=== PATIENT | female | born 1940 | race African-American/Black ===

== ENCOUNTER 2016-06-25 13:34 | Emergency (ER) | payer MEDICARE, BC ==
[~2016-06-25] VITALS: Ht 160 cm; Wt 91.0 kg
[~2016-06-25 13:34] MED LIST: ATEN100T PO; LISI40TA4 PO; NIFE90TA2 PO; OMEP40CA34 PO; OXYC-23 PO
[2016-06-25] MEDS ORDERED: TRAMADOL 50MG TABLET PO ONE (15:30)
[2016-06-25 15:54] VITALS: BP 120/80
== END 2016-06-25 16:49 | disposition home or self-care (01) ==
LOC: ER 13:34
DX: S80.01XA Contusion of right knee, initial encounter (principal); I10 Essential (primary) hypertension; Z79.899 Other long term (current) drug therapy; W01.0XXA Fall on same level from slipping, tripping and stumbling without subsequent striking against object, initial encounter; Y93.01 Activity, walking, marching and hiking; Y92.009 Unspecified place in unspecified non-institutional (private) residence as the place of occurrence of the external cause; Y99.8 Other external cause status
CPT/HCPCS: 73560; 99284

== ENCOUNTER 2018-02-06 17:23 | Emergency (ER) | payer MEDICARE, BC ==
[~2018-02-06] VITALS: Ht 170.2 cm; Wt 97.0 kg
[2018-02-06] MEDS ORDERED: LIDOCAINE HCL 1% 20ML VIAL (Pyxis) INJ INFIL ONE (19:15)
[2018-02-06] MEDS ORDERED: TETANUS, DIPHTHERIA, PERTUSSIS VAC/PF 0.5ML (>7YR OLD) IM ONE (19:30)
[2018-02-06] MEDS ORDERED: BACITRACIN ZINC OINT UDPKT TOP ONE (22:00)
[2018-02-06 22:11] VITALS: BP 185/3
== END 2018-02-06 22:15 | disposition home or self-care (01) ==
LOC: ER 17:23
DX: S41.112A Laceration without foreign body of left upper arm, initial encounter (principal); I10 Essential (primary) hypertension; Z98.890 Other specified postprocedural states; Z79.899 Other long term (current) drug therapy; W01.0XXA Fall on same level from slipping, tripping and stumbling without subsequent striking against object, initial encounter; Y93.89 Activity, other specified; Y92.89 Other specified places as the place of occurrence of the external cause; Y99.8 Other external cause status
CPT/HCPCS: 12002; 73060; 90471; 90715; 99283; J3490

== ENCOUNTER 2020-02-28 20:49 | Emergency (ER) | payer MEDICARE, BC ==
[~2020-02-28] VITALS: Ht 167.6 cm; Wt 100.0 kg
[~2020-02-28 20:49] MED LIST changes: +OMEP40CA12 PO; -OMEP40CA34 PO
[2020-02-28] MEDS ORDERED: SODIUM CHLORIDE 0.9% 1,000 ML IV ONE (21:30)
[2020-02-28 21:57] LABS: BASOPHILS % 0.4 % (0.0-2.0); HEMATOCRIT. 34.9 % (36.0-48.0); HEMOGLOBIN. 11.8 g/dL (12.0-16.0); MEAN CORPUSCULAR HEMOGLOBIN 32.4 pg (28.0-32.0); MEAN CORPUSCULAR VOLUME 95.6 fL (81.0-99.0); MEAN PLATELET VOLUME 9.2 fl (7.4-10.4); MONOCYTES % 10.6 % (2.0-8.0); PLATELET 221 x1000/uL (130-400); RED BLOOD CELL COUNT 3.65 mill/uL (4.2-5.4)
[2020-02-28 22:03] LABS: CHLORIDE 103 mEq/L (98-107)
[2020-02-28 22:07] LABS: ETHANOL BLOOD < 10 mg/dL
[2020-02-28 22:11] LABS: CREATINE KINASE 816 IU/L (26-192)
[2020-02-28 23:59] LABS: CLARITY URINE CLOUDY (CLEAR); COLOR URINE YELLOW (YELLOW); KETONES URINE 1+ (NEGATIVE); LEUKOCYTE ESTERASE URINE 2+ (NEGATIVE); NITRITE URINE NEGATIVE (NEGATIVE); OCCULT BLOOD URINE 1+ (NEGATIVE); PH URINE 5.5 (4.5-8.0); PROTEIN URINE 1+ (NEGATIVE); SPECIFIC GRAVITY URINE 1.018 (1.005-1.030)
[2020-02-29 00:16] LABS: *AMPHETAMINES SCREEN URINE NEGATIVE (NEGATIVE); *BARBITURATES SCREEN URINE NEGATIVE (NEGATIVE); *BENZODIAZEPINES SCREEN URINE PRESUMTIVE POSITIVE (NEGATIVE); *COCAINE SCREEN URINE PRESUMTIVE POSITIVE (NEGATIVE); METHADONE URINE SCREEN NEGATIVE (NEGATIVE); OPIATES URINE SCREEN PRESUMTIVE POSITIVE (NEGATIVE)
[2020-02-29 00:17] LABS: CANNABINOID URINE SCREEN NEGATIVE (NEGATIVE); PHENCYCLIDINE URINE SCREEN NEGATIVE (NEGATIVE)
[2020-02-29] MEDS ORDERED: CEFTRIAXONE 1 G PREMIX 50 ML IV ONE (00:30)
[2020-02-29] MEDS ORDERED: ACETAMINOPHEN 325MG TABLET PO PRN (05:00)
[2020-02-29] MEDS ORDERED: POTASSIUM CHLORIDE 20MEQ TABLET SR PO NR (05:00)
[2020-02-29] MEDS ORDERED: ONDANSETRON HCL 4MG/2ML INJ IV PRN (05:00)
[2020-02-29] MEDS ORDERED: TRAZODONE HCL 50MG TABLET PO PRN (05:00)
[2020-02-29] MEDS ORDERED: HEPARIN 5000 UNITS/ML VIAL SUBCUT SCH (09:00)
[2020-02-29] MEDS ORDERED: ASPIRIN 81MG EC TABLET PO SCH (13:00)
[2020-02-29 14:46] VITALS: BP 131/47
== END 2020-02-29 15:41 | disposition left against medical advice (07) ==
LOC: ER 20:49 → EDBEDREQ 23:48 → CANBEDREQ 02-29 15:41 → ER 02-29 15:41
DX: I11.9 Hypertensive heart disease without heart failure (principal); N17.9 Acute kidney failure, unspecified; R73.9 Hyperglycemia, unspecified; D64.9 Anemia, unspecified; F14.10 Cocaine abuse, uncomplicated; F11.10 Opioid abuse, uncomplicated; F15.10 Other stimulant abuse, uncomplicated; E78.5 Hyperlipidemia, unspecified; M51.36 Other intervertebral disc degeneration, lumbar region; M51.34 Other intervertebral disc degeneration, thoracic region; Z96.653 Presence of artificial knee joint, bilateral; Z79.899 Other long term (current) drug therapy; Z82.49 Family history of ischemic heart disease and other diseases of the circulatory system; Z91.81 History of falling
CPT/HCPCS: 36415; 70450; 71045; 72170; 80053; 80305; 80320; 81003; 82550; 83605; 83690; 84484; 85025; 93005; 99285; J0696; J1644; J7030; A4315; G0480